=== PATIENT | female | born 1975 | race Caucasian/White ===

== ENCOUNTER 2023-08-09 01:21 | Day surgery (SDC) | payer OTHER, SELFPAY ==
[2023-08-04 08:33] VITALS: BMI 21.4
--- NOTE | 2023-08-04 08:36 | PC.NURSE ---
Report to the Outpatient Waiting Room, entrance under the green pavilion located off [facility], at time 1000 on date 08/09/23. Planned Procedure Time: 1200. Time changes happen often and if your time is changed the preop area will call you the afternoon before. - You and your visitor will be asked to self-screen and do not enter if you have any COVID symptoms. - A mask is optional within the hospital at this time. Patients may have clear liquids (water, carbonated beverages, clear teas, apple juice) until 3 hours prior to surgery with a maximum of 20 ounces. - No food from midnight until time of surgery Take the following medications with a SIP of water the morning of surgery: N/A DO NOT STOP ANY OF YOUR OTHER PRESCRIPTION MEDICATIONS PRIOR TO SURGERY ?EXCEPT THE FOLLOWING Medications to discontinue per physician: N/A Date to take last dose: N/A Please no make-up, nail sami, hairspray, perfume, deodorant, or body powder the day of surgery. No jewelry (including any body piercings) or valuables the day of surgery, leave them at home. Please take a shower or bath the night before, or the morning of, surgery with an antibacterial soap. Wear comfortable, loose fitting clothing. - Jewelry must be removed prior to entering the operating room. Rings and piercings that are not removed may be cut off. - The hospital will not accept responsibility for valuables. - Please leave all valuables, including medications, at home the day of surgery. If you are going home after surgery, a licensed front end loader driver must drive you home. - NO public transportation without another adult if you receive anesthesia. - We recommend that an adult stay with you for 24 hours following discharge. - We also recommend that you do not drive, make important decision, drink alcoholic beverages, or take any drugs that were not prescribed by your health care provider for at least 24 hours after your discharge time. Follow any additional instructions given to you from your surgeon. If you or anyone in your household have experienced Covid symptoms in the past week, please notify your surgeon or the nurse liaison at the phone number below for possible testing. Telephone instructions given to PT - GERMAN NG and asked if any additional questions and then verbalized understanding. Patient advised to call surgeon office or pre surgery nurse liaison [phone] if any additional questions.
[2023-08-09] VITALS (8 sets, daily range): BP systolic 95–127; BP diastolic 60–93; PULSE 63–75; RESP 16–20; TEMP 36.8; O2SAT 100
--- NOTE | 2023-08-09 09:45 | PM.IMHP ---
H&P: HPI History of Present Illness Date/Time: 08/09/23 09:45 Chief Complaint: Heavy periods and bothersome elongated labia Narrative: She is a 47-year-old para 2 with a long history of menorrhagia. She has tried NSAIDs has not satisfactorily help. She declines hormonal options. Declines IUD. She does get swelling. She has had an endometrial biopsy did not show any hyperplasia or malignancy. has a vasectomy. she also has had issues with the labia which she states has always been long and sometimes it gets caught and is uncomfortable and would like it removed since she is under anesthesia. Meaaurement of the both labial minora tissue is approximately 2.5 cm which would cause her symptoms. And she would get relief of those symptoms with reduction of the labia minora. Review of Systems Review of Systems: All systems reviewed & are unremarkable except as noted in HPI and below Cardiovascular: Cardiovascular: Reports no additional cardiovascular complaints, Denies chest pain and Denies dyspnea Respiratory: Respiratory: Reports no additional respiratory complaints and Denies dyspnea Gastrointestinal: Gastrointestinal: Reports abdominal pain, Denies change in bowel habits, Denies diarrhea, Denies nausea and Denies vomiting Genitourinary: Genitourinary: Reports pelvic pain Musculoskeletal: Musculoskeletal: Reports back pain Integumentary/Breasts: Skin/Breast: Reports system reviewed and no additional complaints, except as docu Neurologic: Reports system reviewed and no additional complaints, except as documented PMFSH Past Medical History Medical History Allergies History of miscarriage Surgical History Surgical History Hx of wisdom tooth extraction Family History Family History Other Lung cancer Social History Social History Smoking status: Never smoker Alcohol intake: never Substance use: never Substance use type: does not use Current Housing: Decline to Answer Concerned About Future Housing: Decline to Answer Difficulty Paying Gas/Electric Bills: Decline to Answer Difficulty Paying for Meds: Decline to Answer Currently Unemployed: Decline to Answer Education: Decline to Answer Difficulty w/ Childcare or Family Care: Decline to Answer Living arrangements: with family Spiritual care concerns: No Meds Home Medications and Allergies Home Medications Medication Instructions Recorded Confirmed Type No Home Medications 08/04/23 08/04/23 History Allergies Allergy/AdvReac Type Severity Reaction Status Date / Time No Known Allergies Allergy Verified 08/04/23 08:33 Exam Const: Orientation/consciousness: oriented to person and oriented to place HENMT: Head: normal to inspection Eyes: General: appearance normal, both eyes and all related structures Resp: Effort & Inspection: normal respiratory effort Auscultation: clear to auscultation bilaterally Cardio: Rate: regular rate Rhythm: regular rhythm GI: Inspection: normal to inspection GI Palp: No Rebound tenderness present Neuro: General: oriented to person and oriented to place Cognition (Neuro): normal cognition Extrem: General: normal to inspection Psych: Appearance: grossly normal and well kempt Assessment and Plan Assessment and plan (1) Menorrhagia: Code(s): N92.0 - Excessive and frequent menstruation with regular cycle Status: Acute Assessment and Plan: Will proceed with endometrial ablation with hysteroscopy possible D and C if needed. Possible removal of any lesion of present. (2) Labial hypertrophy: Code(s): N90.60 - Unspecified hypertrophy of vulva Status: Acute Assessment and Plan: Will proceed with bilateral labioplasty
[2023-08-09] MEDS: ACETAMINOPHEN 500 MG TABLET 1000 MG PO (10:31)
[2023-08-09] MEDS: LACTATED RINGERS 1,000 ML 30 ML IV CONT ×2 (10:39→13:57)
--- NOTE | 2023-08-09 11:39 | WPDHPUPDATE1 ---
History and Physical Update Update Date/Time: 08/09/23 11:39 History and Physical has been reviewed, including an updated exam of the patient. There are NO changes in the patient's condition. Risks, benefits, and alternatives have been discussed and questions answered. Patient agrees to proceed with procedure.
--- NOTE | 2023-08-09 12:05 | WPDANESEPPF ---
Anes - Initial Pre Proc Eval Procedure: Operation Date: 08/09/23 12:00 Proposed Procedures p Hysteroscopy, Dilation and Curettage with Cecille Endometrial Ablation with Removal of Any Endometrial Lesion if Necessary, - Ej Ponce MD s Labiaplasty - Ej Ponce MD Date/Time: 08/09/23 12:05 Surgeon: Ej Ponce MD Pre Op Diagnosis: Menorrhagia, Excess labia tissue Patient Data Age: 47 Gender: F Height: 1.75 m Weight: 66.4 kg Last Vital Signs Temp 98.3 F 08/09/23 10:24 Pulse 72 08/09/23 10:24 Resp 20 08/09/23 10:24 BP 105/62 08/09/23 10:24 Pulse Ox 100 08/09/23 10:24 O2 Del Method Room Air 08/09/23 10:24 Allergies Allergy/AdvReac Type Severity Reaction Status Date / Time No Known Allergies Allergy Verified 08/09/23 10:20 Home Medications Medication Instructions Recorded Confirmed Type No Home Medications 08/04/23 08/04/23 History Patient hx anesthesia problems: none Family hx anesthesia problems: none Results Review: All pre-operative results and documents have been reviewed as part of the pre-operative evaluation. [facility] Past Medical History Medical History Allergies History of miscarriage Surgical History Surgical History Hx of wisdom tooth extraction Family History Family History Other Lung cancer Social History Social History Smoking status: Never smoker Alcohol intake: never Substance use: never Substance use type: does not use Current Housing: Decline to Answer Concerned About Future Housing: Decline to Answer Difficulty Paying Gas/Electric Bills: Decline to Answer Difficulty Paying for Meds: Decline to Answer Currently Unemployed: Decline to Answer Education: Decline to Answer Difficulty w/ Childcare or Family Care: Decline to Answer Living arrangements: with family Spiritual care concerns: No Anes - Eval Final PreProcedure Day of Procedure 08/09/23 12:05 Patient weight: normal Heart: regular rate and rhythm Lungs: clear to auscultation Airway: Mallampati scale class II Neurological: alert and oriented Last oral intake: >/= 8 hours ASA classification: I Emergent: no Anesthetic plan: proceed Anesthesia type and monitoring: general GIVS (may use LMA if needed) and standard monitoring Results Review: All pre-operative results and documents have been reviewed as part of the pre-operative evaluation. Informed Consent: The patient's anesthetic plan and its attendant risks and benefits were discussed with the patient/family/POA. Questions were solicited and answers provided to the satisfaction of the patient/family/POA.
[2023-08-09] MEDS: LIDOCAINE HCL 1% LOCAL INJ 20 ML VIAL 10 ML INFILTRATE (12:19)
[2023-08-09] MEDS: LIDO 1%/EPINEPHRINE 1:100,000 20 ML VIAL 10 ML INFILTRATE (12:19)
[2023-08-09] MEDS: KETOROLAC 30 MG/ML VIAL (*BKC) IV PUSH (13:43)
--- NOTE | 2023-08-09 14:03 | W.PM.PROC2 ---
Procedure Note - Detailed Date of Procedure 08/09/23 Pre-op Diagnosis Menorrhagia, Excess labia tissue Post-op Diagnosis Same Procedure Performed 1. Cecille endometrial ablation and diagnostic hysteroscopy and D&C 2. Bilateral labialplasty Surgeon Ej Ponce MD Anesthesia MAC and Local Indications Menorrhagia and symptomatic enlarged labia minora Findings Uterine cavity was normal with proliferative tissue the cavity sounded to 10 cm the cervical length was 4 cm uterine length was 6 cm normal labial tissue bilaterally Description of Procedure After informed consent was obtained patient was taken to the operating room an adequate IV sedation was obtained. The patient was prepped and draped in the usual sterile manner. Attention was turned to the vagina speculum. 10 cc of 1% lidocaine plain was injected at the cervical vaginal interface at the 2, 5, 8 and 10 position. A single-tooth tenaculum placed on anterior lip of the cervix the uterus was sounded to 10 cm the cervix was dilated to an 8 Nelson dilator and cervical length was 4 cm. The uterine length was 6cm. A series of Hegar dilators were then inserted sequentially into the cervical os up to a size of 5 mm. The diagnostic hysteroscope was then introduced into the uterine cavity and the uterus was distended with normal saline fluid. The cavity was examined and found to be normal shape without polyps. The endometrial tissue appeared to be proliferative. Both ostia were visualized and noted to be normal. A curettage was performed. The Cecille device was then inserted. Cavity assessment was performed and noted to be intact. The Cecille apparatus was enabled. The tissue was cauterized for 120 seconds. Endometrial ablation apparatus was removed. The hysteroscope was inserted into the cavity and good eschar noted. The tenaculum was removed and the cervix examined for hemostasis which was achieved. Attention was turned to the labia. The labia was marked with a pen demarcating the area of excess tissue that was to be excised. The labia minora was then infiltrated along the lines of demarcation. This was done with 1% lidocaine with epinephrine. This was done on both labia. The labia was then clamped at the apex and inferior using Opal clamps and the tissue excised. The tissue was then cauterized for hemostasis. Excellent hemostasis was confirmed. The clitoral curtis was then trimmed using scissors. The exposed tissue of clitoral curtis and labia were re-approximated using 3-0 Monocryl. And then a running stitch of 3-0 Monocryl was used. This was done on both sides. Excellent hemostasis was noted. The patient tolerated the procedure and was discharged home in stable condition. Estimated Blood Loss 10 Drains No Packing No Pathology Yes (Endometrial curettings) Complications No immediate complications Condition Stable Disposition Same day [facility] Billing Surgery - Charge Forward: Surgery Billing
[2023-08-09] MEDS: oxyCODONE HCL (*CRX) 5 MG TAB IR PO (14:45)
== END 2023-08-09 15:40 | disposition home or self-care (01) ==
PROVIDERS: PCP Physician Assistant; Visit Provider Obstetrics & Gynecology
PROC: 0U5B8ZZ Destruction of Endometrium, Via Natural or Artificial Opening Endoscopic (ICD-10-PCS; CPT 58563; principal; 2023-08-09 12:00)
PROC: (CPT 58563; 2023-08-09 12:00)
DX: N92.0 Excessive and frequent menstruation with regular cycle (principal); N90.60 Unspecified hypertrophy of vulva
CPT/HCPCS: 58563; 56620; 88305; A9270; J1100; J1885; J2250; J2405; J2704; J3010; J7120